=== PATIENT | male | born 1945 | race Caucasian/White ===

== ENCOUNTER → 2024-07-22 13:56 | Outpatient (CLI) | payer MEDICARE, SELFPAY ==
[2024-07-22 14:27] LABS: Estimated Glomerular Filt Rate 58 mL/min (>60)
== END ==
PROVIDERS: PCP Student in an Organized Health Care Education/Training Program; Referring Provider Urology; Visit Provider Urology
DX: C61 Malignant neoplasm of prostate (principal)
CPT/HCPCS: 36415; 82565

== ENCOUNTER → 2024-08-13 09:26 | Outpatient (CLI) | payer MEDICARE, SELFPAY ==
--- NOTE | 2024-08-13 09:27 | DI.NM.S_ITS ---
PROCEDURE: [place] BONE SCAN WHOLE BODY RADIOPHARMACEUTICAL: 22 mCi Tc-99m MDP IV. 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 Anterior and posterior views were acquired from vertex to feet. Additional left and right oblique views of the pelvis were obtained. COMPARISON: [facility], CT, CT ABDOMEN PELVIS W CON, 08/13/2024, 9:50. FINDINGS: Physiologic uptake is noted within the kidneys and bladder. There are focal and confluent areas of increased uptake within the right hemipelvis and to a lesser degree the left iliac bone. Sclerosis is present on CT exam. Uptake is present in the right sacrum as well as multifocal areas in the cervical, thoracic and lumbar spine. The most prominent are present at T9 and T4. There is a focal area of uptake in the right maxillary region. Uptake within the left ribs are present at T10 and T12 ill-defined uptake is noted within the right lower extremity. IMPRESSION: Multifocal areas of uptake particularly within the pelvis highly suggestive metastatic disease. Uptake is overlying the right maxilla. This could represent dental disease or osseous metastatic focus. Multifocal areas of uptake are identified within the spine. There is not availability of current imaging to compare on x-ray or CT. Degenerative versus metastatic disease has similar appearance. Uptake within the ribs is present. This could represent metastatic disease. However, fracture can have a similar appearance. Recommend correlation to x-rays. Ill-defined uptake is noted within the right lower extremity. Recommend correlation to x-ray for further evaluation. Dictated by: Sarah Ruelas M.D. on 08/13/2024 at 16:27 Approved by: Sarah Ruelas M.D. on 08/13/2024 at 16:35
--- NOTE | 2024-08-13 09:27 | DI.CT.S_ITS ---
PROCEDURE: CT ABDOMEN PELVIS W CON INDICATIONS: 78 y/o M w/ newly diagnosed high-risk prostate cancer TECHNIQUE: After the administration of intravenous contrast, axial sections acquired from the lung bases to the pubic symphysis. Coronal and sagittal reformats were performed. For radiation dose reduction, the following was used: automated exposure control, adjustment of mA and/or kV according to patient size. COMPARISON: [place], [place], [place] BONE SCAN WHOLE BODY, 08/13/2024, 13:48. FINDINGS: Image quality: Diagnostic. Lower Chest: Bibasilar atelectasis. Heart size is normal. Coronary atherosclerotic vascular calcifications are noted. Small hiatal hernia. ABDOMEN: Liver: No solid mass. There is diffuse hypoattenuation of the liver parenchyma relative to the spleen compatible with hepatic steatosis. Gallbladder: Gallbladder is unremarkable without CT evidence for acute inflammation. Biliary ducts: No biliary dilation. Pancreas: No ductal dilation. Spleen: Size is within normal limits. Adrenal Glands: No adrenal nodules. Kidneys and Ureters: No hydronephrosis. No solid mass. No complex renal cystic lesion which requires follow up. Stomach and Bowel: Normal colonic caliber, without significant wall thickening. No evidence for small bowel obstruction or associated inflammatory changes. Peritoneum: No abnormal intraperitoneal fluid. No free air. Ventral Wall: There is a fat-containing umbilical hernia without acute inflammation. Abdominal Nodes: No retroperitoneal or mesenteric adenopathy by size criteria. Vessels: Scattered atherosclerotic calcifications of the abdominal aorta and iliac vessels without aneurysmal dilatation. The inferior vena cava appears patent. PELVIS: Pelvic Organs: Heterogeneous, irregular appearance of the prostate gland. Mild prostatomegaly. Appears to be extension towards the left seminal vesicle. Findings are consistent with reported history of prostate carcinoma. Bladder: No bladder wall thickening, accounting for underdistention. Pelvic Nodes: Multiple suspicious pelvic side wall lymph nodes. For example, 1.3 cm left pelvic side wall (61/series 2), right pelvic side wall (60/series 2), right lower pelvis (50/series 2). Miscellaneous: No inguinal hernias are seen. Bones: Multiple heterogeneous sclerotic osseous lesions involving the right iliac wing, right acetabulum, right inferior/superior pubic rami, left posterior iliac wing, right L5-S1, and inferior aspect of L4. These correlate with foci of abnormal uptake seen on comparison bone scan. These are suspicious for osseous metastasis. IMPRESSION: Heterogeneous, irregular appearance of the enlarged prostate consistent with reported history of prostate cancer. There are multiple suspicious right lower pelvic and bilateral pelvic side wall lymph nodes suspicious for metastatic adenopathy. Multiple heterogeneous, sclerotic osseous lesions in the pelvis, right hip, and minimally involving the lower spine correlating with foci of increased uptake on comparison bone scan are consistent with osseous metastasis. Other chronic/nonacute findings as above. Dictated by: Woody Mg M.D. on 08/13/2024 at 17:53 Approved by: Woody Mg M.D. on 08/13/2024 at 18:49
== END ==
LOC: NUCM 09:26
PROVIDERS: PCP Student in an Organized Health Care Education/Training Program; Referring Provider Urology; Visit Provider Urology
DX: C61 Malignant neoplasm of prostate (principal); I25.10 Atherosclerotic heart disease of native coronary artery without angina pectoris; K44.9 Diaphragmatic hernia without obstruction or gangrene; K42.9 Umbilical hernia without obstruction or gangrene; R59.0 Localized enlarged lymph nodes; M89.9 Disorder of bone, unspecified
CPT/HCPCS: 74177; 78306; A9503; Q9967